=== PATIENT | female | born 1980 | race Caucasian/White ===

== ENCOUNTER 2016-10-27 18:23 | Emergency (ER) | payer OTHER ==
[~2016-10-27] VITALS: Ht 162.6 cm; Wt 125.0 kg
[2016-10-27 18:24] VITALS: BP 163/93; PULSE 101; RESP 24; TEMP 98.7; O2SAT 99
[2016-10-27] MEDS ORDERED: SODIUM CHLOR 0.9% 1000 ML INJ 1,000 ML IV SCH (18:51)
[2016-10-27] MEDS ORDERED: GABA100C4 PO (18:57)
[2016-10-27] MEDS ORDERED: DICYCLOMINE HCL 20 MG/2 ML VIAL IM ONE (19:00)
[2016-10-27 19:16] LABS: AUTOMATED NEUTROPHIL # 7.3 TH/MM3 (1.8-7.7); BASOPHIL % 0.2 % (0.0-2.0); EOSINOPHIL # 0.1 TH/MM3 (0-0.4); HEMO FLAGS DIFF FINAL; LYMPH % 21.9 % (9.0-44.0); LYMPHOCYTE # 2.2 TH/MM3 (1.0-4.8); MEAN CORPUSCULAR HEMOGLOBIN 29.2 PG (27.0-34.0); MEAN CORPUSCULAR HGB CONC 33.5 % (32.0-36.0); MONO % 4.3 % (0.0-8.0); NEUT % 72.6 % (16.0-70.0); PLATELET COUNT 326 TH/MM3 (150-450); RED BLOOD COUNT 4.26 MIL/MM3 (4.00-5.30); RED CELL DISTRIBUTION WIDTH 12.4 % (11.6-17.2); WHITE BLOOD COUNT 10.1 TH/MM3 (4.0-11.0)
[2016-10-27 19:29] LABS: BLOOD, URINE NEG (NEG); COMMENT (UR) CULT NOT INDICATED; CULTURE IF INDICATED CULT NOT INDICATED; GLUCOSE,URINE NEG (NEG); KETONE, URINE NEG (NEG); NITRITE,URINE NEG (NEG); SQUAMOUS EPITHELIAL CELL URINE 1 /hpf (0-5); URINE COLOR YELLOW (YELLW/STRAW)
[2016-10-27] MEDS ORDERED: MORPHINE SULFATE 4 MG/ML INJ IV PUSH ONE (19:30)
[2016-10-27] MEDS ORDERED: ONDANSETRON HCL 4 MG/2 ML VIAL IV PUSH ONE (19:30)
[2016-10-27 19:49] LABS: ALKALINE PHOSPHATASE 67 U/L (45-117); ALT (GPT) 158 U/L (10-53); ANION GAP 11 MEQ/L (5-15); AST (GOT) 165 U/L (15-37); BICARBONATE 24.5 MEQ/L (21.0-32.0); BLOOD UREA NITROGEN 9 MG/DL (7-18); CHLORIDE 99 MEQ/L (98-107); GLOMERULAR FILTRATION RATE 65 ML/MIN (>89); SODIUM (NA) 134 MEQ/L (136-145); TOTAL BILIRUBIN ADULT 0.3 MG/DL (0.2-1.0)
[2016-10-27 19:52] LABS: POTASSIUM 4.3 MEQ/L (3.5-5.1)
--- NOTE | 2016-10-27 20:04 | PD ---
HPI Chief Complaint: Abdominal Pain Time Seen by Provider: 19:57 Travel History International Travel<30 days: No Contact w/Intl Traveler<30days: No Traveled to known affect area: No History of Present Illness HPI 36-year-old female that presents to the ED for evaluation of abdominal pain. Per patient she's had abdominal pain since going to a gas station restroom to have a bowel movement. Per patient abdominal pain is cramping. Per patient she 's had this similar pain secondary to having a chronic history of IBS. Per patient she's had this since age 20. She denies any chest pain or shortness of breath. Per patient she did felt nauseous when she had the bowel movement and she states that the bowel movement is normal. Per patient right now she doesn' t have much pain and the pain is improved for out of 10. She chronically takes Bentyl for the IBS but states that it seems like recently is not been working as he used to. She is on her way back to [facility]. She denies any new foods. No fevers chills or sweats. Symptoms occurred about an hour ago. She has not seen anybody for this. She states that she denies any vaginal bleeding or discharge. No possibility of . No surgeries to her abdomen. No allergies to medication. No other medical problems. PFSH Past Medical History Musculoskeletal: Yes (chronic back pain) Tetanus Vaccination: > 5 Years Influenza Vaccination: No ?: Not LMP: LAST WEEK Past Surgical History Abdominal Surgery: Yes Cholecystectomy: Yes Social History Alcohol Use: No Tobacco Use: No Substance Use: No Allergies-Medications (Allergen,Severity, Reaction): Coded Allergies: No Known Allergies (Unverified , 10/27/16) Reported Meds & Prescriptions Reported Meds & Active Scripts Active Reported Gabapentin 100 Mg Cap 100 Mg PO TID Review of Systems Except as stated in HPI: all other systems reviewed are Neg Physical Exam Narrative GENERAL: SKIN: Warm and dry. HEAD: Atraumatic. Normocephalic. EYES: Pupils equal and round. No scleral icterus. No injection or drainage. ENT: No nasal bleeding or discharge. Mucous membranes pink and moist. Tongue is midline. No uvula deviation. NECK: Trachea midline. No JVD. CARDIOVASCULAR: Regular rate and rhythm. No murmurs, S3, S4. RESPIRATORY: No accessory muscle use. Clear to auscultation. Breath sounds equal bilaterally. GASTROINTESTINAL: Abdomen soft, non-tender, nondistended. Hepatic and splenic margins not palpable. MUSCULOSKELETAL: Extremities without clubbing, cyanosis, or edema. No obvious deformities. Full range of motion of the upper and lower extremities bilaterally. 2+ pulses bilaterally. NEUROLOGICAL: Awake and alert. No obvious cranial nerve deficits. Motor grossly within normal limits. Five out of 5 muscle strength in the arms and legs. Normal speech. PSYCHIATRIC: Appropriate mood and affect; insight and judgment normal. Data Data Last Documented VS Vital Signs Date Time Temp Pulse Resp B/P Pulse Ox O2 Delivery O2 Flow Rate FiO2 10/27/16 18:57 17 10/27/16 18:24 98.7 101 163/93 99 Room Air Orders Complete Blood Count With Diff (10/27/16 18:38) Comprehensive Metabolic Panel (10/27/16 18:38) Lipase (10/27/16 18:38) Iv Access Insert/Monitor (10/27/16 18:38) Ecg Monitoring (10/27/16 18:38) NPO (10/27/16 18:38) Urinalysis - C+S If Indicated (10/27/16 18:38) Ed Urine Pregnancytest Poc (10/27/16 18:38) Sodium Chlor 0.9% 1000 Ml Inj (Ns 1000 M (10/27/16 18:51) Dicyclomine Inj (Bentyl Inj) (10/27/16 19:00) Morphine Inj (Morphine Inj) (10/27/16 19:30) Ondansetron Inj (Zofran Inj) (10/27/16 19:30) Labs Laboratory Tests Test 10/27/16 18:55 White Blood Count 10.1 TH/MM3 Red Blood Count 4.26 MIL/MM3 Hemoglobin 12.4 GM/DL Hematocrit 37.0 % Mean Corpuscular Volume 87.0 FL Mean Corpuscular Hemoglobin 29.2 PG Mean Corpuscular Hemoglobin 33.5 % Concent Red Cell Distribution Width 12.4 % Platelet Count 326 TH/MM3 Mean Platelet Volume 9.0 FL Neutrophils (%) (Auto) 72.6 % Lymphocytes (%) (Auto) 21.9 % Monocytes (%) (Auto) 4.3 % Eosinophils (%) (Auto) 1.0 % Basophils (%) (Auto) 0.2 % Neutrophils # (Auto) 7.3 TH/MM3 Lymphocytes # (Auto) 2.2 TH/MM3 Monocytes # (Auto) 0.4 TH/MM3 Eosinophils # (Auto) 0.1 TH/MM3 Basophils # (Auto) 0.0 TH/MM3 CBC Comment DIFF FINAL Differential Comment Urine Color YELLOW Urine Turbidity CLEAR Urine pH 6.0 Urine Specific [place] 1.015 Urine Protein NEG mg/dL Urine Glucose (UA) NEG mg/dL Urine Ketones NEG mg/dL Urine Occult Blood NEG Urine Nitrite NEG Urine Bilirubin NEG Urine Urobilinogen LESS THAN 2.0 MG/DL Urine Leukocyte Esterase NEG Urine RBC LESS THAN 1 /hpf Urine WBC 1 /hpf Urine Squamous Epithelial 1 /hpf Cells Microscopic Urinalysis Comment CULT NOT INDICATED Sodium Level 134 MEQ/L Potassium Level 4.3 MEQ/L Chloride Level 99 MEQ/L Carbon Dioxide Level 24.5 MEQ/L Anion Gap 11 MEQ/L Blood Urea Nitrogen 9 MG/DL Creatinine 0.98 MG/DL Estimat Glomerular Filtration 65 ML/MIN Rate Random Glucose 213 MG/DL Calcium Level 9.5 MG/DL Total Bilirubin 0.3 MG/DL Aspartate Amino Transf 165 U/L (AST/SGOT) Alanine Aminotransferase 158 U/L (ALT/SGPT) Alkaline Phosphatase 67 U/L Total Protein 7.7 GM/DL Albumin 3.5 GM/DL Lipase 111 U/L [facility] Medical Decision Making Medical Screen Exam Complete: Yes Emergency Medical Condition: Yes Medical Record Reviewed: Yes Interpretation(s) CBC & BMP Diagram 10/27/16 18:55 LFTS slightly elevated Lipase WNL UA negative Differential Diagnosis IVS versus cramping pain versus lower abdominal pain versus acute abdomen versus normal exam versus UTI versus versus gastroenteritis Narrative Course 36-year-old female that presents to the ED for evaluation of lower abdominal pain. Patient was properly examined and was found to have signs and symptoms consistent appears to be possible IBS flareup. Exam appears to be benign. Patient does have a bowel movement when I went to evaluate her and she states that she feels improved. At this time I recommend labs and treat her pain and evaluated. Patient is agreeable with this. Labs were essentially unremarkable. No WBC count elevation other than some LFT elevation. Case was discussed in my attending Dr. Garnett who agrees with plan. Patient was reassessed and feels improved. At this time I recommend follow-up outpatient treatment. Patient was given prescription for Zofran, Bentyl and diclofenac sodium. I recommend close follow-up with PCP. See ED if worsening symptoms. Diagnosis Primary Impression: Abdominal pain Qualified Code: R10.30 - Lower abdominal pain Patient Instructions: General Instructions, Narcotic given in the ED Additional Instructions: Take medication as prescribed. Liquid diet until better. Follow with PCP. See ED worsening symptoms. Med/Other Pt SpecificInfo: Prescription(s) given Disposition: 01 DISCHARGE HOME Condition: Stable Anthony Crocker Oct 27, 2016 20:03
[2016-10-27] MEDS ORDERED: BENT20TA PO (20:05)
[2016-10-27] MEDS ORDERED: ZOFR4TAB PO (20:05)
[2016-10-27] MEDS ORDERED: DICL75TA PO (20:05)
[2016-10-27 21:03] VITALS: BP 151/73
== END 2016-10-27 21:18 | disposition home or self-care (01) ==
LOC: NEPE 18:23
DX: R10.30 Lower abdominal pain, unspecified (principal)
CPT/HCPCS: 80053; 81001; 83690; 84703; 85025; 96374; 96375; 99284; J0500; J2270; J2405; J7030